=== PATIENT | male | born 1965 | race Caucasian/White ===

== ENCOUNTER 2017-09-14 15:11 | Inpatient (IN) | payer BC ==
[2017-09-14 15:52] LABS: CLARITY,URINE TURBID; COLOR,URINE RED; GLUCOSE,URINE NEGATIVE (NEG); NITRITE,URINE POSITIVE (NEG); PROTEIN,URINE >=300 mg/dL (NEG-TRACE)
[2017-09-14 15:57] LABS: ADD MAN DIFF? NO
[2017-09-14 16:00] LABS: BACTERIA,URINE MANY /HPF (0-FEW); BASO % 0 % (0-3); EOS # 0.1 x10^3/uL (0.0-0.7); EOS % 1 % (0-3); HEMATOCRIT 32.3 % (39.0-53.0); HEMOGLOBIN 10.8 g/dL (13.0-17.5); LYMPH # 2.4 x10^3/uL (1.0-4.8); LYMPH % 17 % (24-48); MEAN CORPUSCULAR HEMOGLOBIN 27 pg (25-35); MEAN CORPUSCULAR HGB CONC 33 g/dL (31-37); MEAN CORPUSCULAR VOLUME 80 fL (79-100); MONO # 1.3 x10^3/uL (0.0-1.1); MONO % 10 % (0-9); NEUT # 10.2 x10^3uL (1.8-7.7); NEUT % 72 % (31-73); PLATELET COUNT 569 x10^3/uL (140-400); RBC,URINE >40 /HPF (0-2); RED BLOOD COUNT 4.04 x10^6/uL (4.30-5.70); RED CELL DISTRIBUTION WIDTH 17.3 % (11.5-14.5); WBC,URINE TNTC /HPF (0-4); WHITE BLOOD COUNT 14.1 x10^3/uL (4.0-11.0)
[2017-09-14] MEDS: IV NORMAL SALINE 1000ML BAG 1,000 ML IV (16:06)
[2017-09-14 16:07] LABS: BARBITURATES NEG (NEG); BENZODIAZEPINES NEG (NEG); CANNABINOIDS NEG (NEG); COCAINE NEG (NEG); METHADONE NEG (NEG); OPIATES NEG (NEG); PHENCYCLIDINE NEG (NEG)
[2017-09-14 16:09] LABS: AMPHETAMINE/METHAMPHETAMINE NEG (NEG); ETHANOL, URINE NEG (NEG); INR 1.2 (0.8-1.1); PROTHROMBIN TIME PATIENT 14.1 SEC (11.7-14.0)
[2017-09-14] MEDS: MORPHINE SULFATE 4 MG/ML DISP.SYRIN. IV/SQ (16:12)
[2017-09-14] MEDS: ONDANSETRON ODT 4 MG TAB.RAPDIS. PO (16:12)
[2017-09-14] MEDS: IOHEXOL 300 MG/ML 100ML VIAL. IV (16:15)
[2017-09-14 16:19] LABS: LACTIC ACID 1.3 mmol/L (0.4-2.0)
[2017-09-14 16:23] LABS: TROPONINI < 0.017 ng/mL (0.000-0.055)
[2017-09-14 16:25] LABS: ANION GAP 11 (6-14); BLOOD UREA NITROGEN 18 mg/dL (8-26); CALCIUM 8.3 mg/dL (8.5-10.1); CARBON DIOXIDE 26 mmol/L (21-32); CHLORIDE 102 mmol/L (98-107); CREATININE 0.9 mg/dL (0.7-1.3); GLUCOSE 136 mg/dL (70-99); POTASSIUM 3.2 mmol/L (3.5-5.1); SODIUM 139 mmol/L (136-145)
[2017-09-14 16:28] LABS: NT-PRO BNP 197 pg/mL (0-124); THYROID STIM HORMONE (TSH) 3.324 uIU/mL (0.358-3.74)
[2017-09-14 16:29] LABS: ALBUMIN 2.3 g/dL (3.4-5.0); ALK PHOS 76 U/L (46-116); ALT (SGPT) 16 U/L (16-63); AST (SGOT) 12 U/L (15-37); DIRECT BILIRUBIN 0.1 mg/dL (0.0-0.2); LIPASE 96 U/L (73-393); MAGNESIUM 1.9 mg/dL (1.8-2.4); TOTAL BILIRUBIN 0.3 mg/dL (0.2-1.0); TOTAL PROTEIN 6.9 g/dL (6.4-8.2)
[2017-09-14] MEDS ORDERED: CONTRAST GIVEN MC (16:30)
[2017-09-14 16:52] LABS: CKMB MASS < 0.5 ng/mL (0.0-3.6)
[2017-09-14 16:53] LABS: CREATINE KINASE 45 U/L (39-308)
[2017-09-14] MEDS ORDERED: hydrALAZINE 20 MG/ML VIAL. IVP (18:45)
[2017-09-14] MEDS ORDERED: ONDANSETRON PF 4 MG/2 ML VIAL. IV ×2 (18:45→19:30)
[2017-09-14] MEDS: cefTRIAXone IV Push 1 GM VIAL. IVP (19:11)
[2017-09-14] MEDS: POTASSIUM CHLORIDE 20 MEQ TABLET.ER. PO (19:12)
[2017-09-14] MEDS: HYDROcodone/APAP 5/325MG 1 TAB TABLET PO (21:14)
[2017-09-14] MEDS: MORPHINE SULFATE 4 MG/ML DISP.SYRIN. IV (21:15)
[2017-09-14] MEDS: HEPARIN PF for SUB-Q USE 5,000 UNIT/0.5 ML VIAL. SQ (22:00)
[2017-09-15] MEDS: ACETAMINOPHEN 325 MG TABLET. PO ×2 (00:31→22:52)
[2017-09-15 05:36] LABS: ADD MAN DIFF? NO
[2017-09-15 05:38] LABS: BASO # 0.1 x10^3/uL (0.0-0.2); BASO % 1 % (0-3); EOS # 0.1 x10^3/uL (0.0-0.7); EOS % 1 % (0-3); HEMATOCRIT 31.3 % (39.0-53.0); HEMOGLOBIN 10.2 g/dL (13.0-17.5); LYMPH # 2.3 x10^3/uL (1.0-4.8); LYMPH % 18 % (24-48); MEAN CORPUSCULAR HEMOGLOBIN 26 pg (25-35); MEAN CORPUSCULAR HGB CONC 33 g/dL (31-37); MEAN CORPUSCULAR VOLUME 80 fL (79-100); MONO # 1.7 x10^3/uL (0.0-1.1); MONO % 13 % (0-9); NEUT % 68 % (31-73); PLATELET COUNT 468 x10^3/uL (140-400); RED BLOOD COUNT 3.89 x10^6/uL (4.30-5.70); WHITE BLOOD COUNT 13.1 x10^3/uL (4.0-11.0)
[2017-09-15] MEDS: HEPARIN PF for SUB-Q USE 5,000 UNIT/0.5 ML VIAL. SQ ×3 (06:00→21:45)
[2017-09-15 06:13] LABS: ANION GAP 7 (6-14); BLOOD UREA NITROGEN 12 mg/dL (8-26); CALCIUM 8.7 mg/dL (8.5-10.1); CARBON DIOXIDE 25 mmol/L (21-32); CHLORIDE 104 mmol/L (98-107); CREATININE 0.6 mg/dL (0.7-1.3); GLUCOSE 91 mg/dL (70-99); POTASSIUM 4.2 mmol/L (3.5-5.1); SODIUM 136 mmol/L (136-145)
[2017-09-15] MEDS: HYDROcodone/APAP 5/325MG 1 TAB TABLET PO ×2 (06:21→12:49)
[2017-09-15] MEDS: MORPHINE SULFATE 4 MG/ML DISP.SYRIN. IV ×4 (06:22→21:44)
[2017-09-15] MEDS ORDERED: CONTRAST GIVEN MC (08:45)
[2017-09-15] MEDS: IOHEXOL 300 MG/ML 100ML VIAL. IV (10:48)
[2017-09-15] MEDS: POLYETHYLENE GLYCOL 3350 238 GM POWDER PO (16:42)
[2017-09-15] MEDS: cefTRIAXone IV Push 1 GM VIAL. IVP (16:43)
[2017-09-15 17:16] LABS: C DIFF BY PCR Negative (Negative)
[2017-09-15] MEDS: TAMSULOSIN 0.4 MG CAP.ER.24H. PO ×2 (21:00→21:37)
[2017-09-16] MEDS: MORPHINE SULFATE 4 MG/ML DISP.SYRIN. IV ×7 (00:41→22:59)
[2017-09-16] MEDS: HYDROcodone/APAP 5/325MG 1 TAB TABLET PO (01:57)
[2017-09-16 05:25] LABS: LACTATE DEHYDROGENASE 231 U/L (85-227)
[2017-09-16] MEDS: HEPARIN PF for SUB-Q USE 5,000 UNIT/0.5 ML VIAL. SQ ×3 (06:00→21:24)
[2017-09-16] MEDS ORDERED: LIDOCAINE 1% PF 2 ML VIAL. ID ×2 (07:00→07:30)
[2017-09-16] MEDS ORDERED: ONDANSETRON PF 4 MG/2 ML VIAL. IV (07:00)
[2017-09-16] MEDS ORDERED: fentaNYL PF VIAL 100 MCG/2 ML VIAL IV ×4 (07:00→19:30)
[2017-09-16] MEDS ORDERED: MORPHINE SULFATE 4 MG/ML DISP.SYRIN. IV (07:00)
[2017-09-16] MEDS ORDERED: PROCHLORPERAZINE 10 MG/2 ML VIAL. IV (07:00)
[2017-09-16] MEDS: IV RINGERS,LACTATED 1000ML 1,000 ML IV ×4 (07:26→15:26)
[2017-09-16] MEDS ORDERED: MIDAZOLAM HCL/PF 2 MG/2 ML VIAL. IV (07:30)
[2017-09-16] MEDS ORDERED: SODIUM PHOSPHATES 19/7GM 133 ML ENEMA. (10:41)
[2017-09-16] MEDS ORDERED: PROPOFOL 20 ML IV ×3 (11:26→16:31)
[2017-09-16] MEDS: SODIUM PHOSPHATES 19/7GM 133 ML ENEMA. PR (11:30)
[2017-09-16] MEDS: cefTRIAXone IV Push 1 GM VIAL. IVP (16:00)
[2017-09-16] MEDS: IOHEXOL 300 MG/ML 100ML VIAL. (16:04)
[2017-09-16] MEDS ORDERED: ESMOLOL 100 MG/10 ML VIAL. IV (16:31)
[2017-09-16] MEDS ORDERED: ONDANSETRON PF 4 MG/2 ML VIAL. (16:31)
[2017-09-16] MEDS ORDERED: DEXAMETHASONE SOD PHOS 20 MG/5 ML VIAL. (16:31)
[2017-09-16] MEDS ORDERED: SEVOFLURANE 31 TO 60 MINUTES. IH (16:32)
[2017-09-16] MEDS: fentaNYL PF VIAL 100 MCG/2 ML VIAL IV ×5 (16:53→20:37)
[2017-09-16] MEDS ORDERED: LABETALOL 20 MG/4 ML DISP.SYRIN. (17:25)
[2017-09-16] MEDS: METOPROLOL TARTRATE 5 MG/5 ML VIAL. IVP (17:28)
[2017-09-16] MEDS ORDERED: diphenhydrAMINE HCL 25 MG CAPSULE PO (19:15)
[2017-09-16] MEDS: TAMSULOSIN 0.4 MG CAP.ER.24H. PO ×2 (20:35→21:00)
[2017-09-17] MEDS: fentaNYL PF VIAL 100 MCG/2 ML VIAL IV ×6 (02:18→16:51)
[2017-09-17] MEDS: IV RINGERS,LACTATED 1000ML 1,000 ML IV ×5 (02:19→23:05)
[2017-09-17] MEDS: HEPARIN PF for SUB-Q USE 5,000 UNIT/0.5 ML VIAL. SQ ×2 (06:00→14:00)
[2017-09-17] MEDS: MORPHINE SULFATE 4 MG/ML DISP.SYRIN. IV (06:31)
[2017-09-17] MEDS ORDERED: LIDOCAINE 1% PF 2 ML VIAL. ID (07:00)
[2017-09-17] MEDS ORDERED: ONDANSETRON PF 4 MG/2 ML VIAL. IV ×2 (07:00→15:30)
[2017-09-17] MEDS ORDERED: MORPHINE SULFATE 2 MG/ML DISP.SYRIN. IV (07:00)
[2017-09-17] MEDS ORDERED: fentaNYL PF VIAL 100 MCG/2 ML VIAL IV (07:00)
[2017-09-17] MEDS ORDERED: ROCURONIUM 50 MG/5 ML VIAL. ×2 (09:08→09:44)
[2017-09-17] MEDS ORDERED: PROPOFOL 20 ML IV (09:08)
[2017-09-17] MEDS ORDERED: LIDOCAINE 1% PF 5 ML VIAL. (09:08)
[2017-09-17] MEDS ORDERED: DEXAMETHASONE SOD PHOS 20 MG/5 ML VIAL. (09:09)
[2017-09-17] MEDS ORDERED: ONDANSETRON PF 4 MG/2 ML VIAL. (09:09)
[2017-09-17] MEDS ORDERED: fentaNYL PF VIAL 250 MCG/5 ML VIAL (09:12)
[2017-09-17] MEDS ORDERED: fentaNYL PF VIAL 100 MCG/2 ML VIAL (09:41)
[2017-09-17] MEDS ORDERED: KETAMINE HCL 500 MG/10 ML VIAL. (09:44)
[2017-09-17] MEDS ORDERED: [UNRECOGNIZED DRUG - OTHER] IV (11:00)
[2017-09-17] MEDS ORDERED: CEFOXITIN 2 GM IV (11:00)
[2017-09-17] MEDS ORDERED: MIDAZOLAM HCL/PF 2 MG/2 ML VIAL. (11:13)
[2017-09-17 11:24] LABS: CEA 2.2 ng/mL (0.0-4.7)
[2017-09-17 11:24] LABS: CEA 2.3 ng/mL (0.0-4.7)
[2017-09-17] MEDS ORDERED: ALBUMIN HUMAN 5% 500 ML IV (12:03)
[2017-09-17] MEDS ORDERED: ROCURONIUM 100 MG/10 ML VIAL. (12:10)
[2017-09-17] MEDS ORDERED: SEVOFLURANE > 120 MINUTES. IH (13:03)
[2017-09-17] MEDS ORDERED: MORPHINE SULFATE 10 MG/ML VIAL. (13:31)
[2017-09-17] MEDS ORDERED: NEOSTIGMINE 10 MG/10 ML VIAL. (14:54)
[2017-09-17] MEDS ORDERED: GLYCOPYRROLATE 1 MG/5 ML VIAL. (14:54)
[2017-09-17] MEDS ORDERED: NALOXONE 0.4 MG/ML VIAL. IV (15:30)
[2017-09-17] MEDS ORDERED: 0.9 % SODIUM CHLORIDE 10 ML DISP.SYRIN. IV (15:30)
[2017-09-17] MEDS: MORPHINE SULFATE/PF 30 ML IV (16:11)
[2017-09-17] MEDS: PROCHLORPERAZINE 10 MG/2 ML VIAL. IV ×2 (16:15→16:50)
[2017-09-17] MEDS ORDERED: ENOXAPARIN 40 MG/0.4 ML SYRINGE. SQ (17:00)
[2017-09-17] MEDS: IV NORMAL SALINE 1000ML BAG 1,000 ML IV (18:19)
[2017-09-17] MEDS: cefTRIAXone IV Push 1 GM VIAL. IVP (19:28)
[2017-09-17] MEDS: TAMSULOSIN 0.4 MG CAP.ER.24H. PO (20:41)
[2017-09-18 05:54] LABS: ADD MAN DIFF? NO
[2017-09-18 06:23] LABS: ANION GAP 7 (6-14); BLOOD UREA NITROGEN 10 mg/dL (8-26); CARBON DIOXIDE 26 mmol/L (21-32); CHLORIDE 104 mmol/L (98-107); CREATININE 0.5 mg/dL (0.7-1.3); GFR 175.3; GLUCOSE 129 mg/dL (70-99); POTASSIUM 4.2 mmol/L (3.5-5.1); SODIUM 137 mmol/L (136-145)
[2017-09-18 06:33] LABS: BASO % 0 % (0-3); EOS % 0 % (0-3); HEMOGLOBIN 7.9 g/dL (13.0-17.5); LYMPH # 1.6 x10^3/uL (1.0-4.8); LYMPH % 12 % (24-48); MEAN CORPUSCULAR HEMOGLOBIN 26 pg (25-35); MEAN CORPUSCULAR HGB CONC 33 g/dL (31-37); MEAN CORPUSCULAR VOLUME 79 fL (79-100); MONO # 1.1 x10^3/uL (0.0-1.1); MONO % 8 % (0-9); NEUT # 10.4 x10^3uL (1.8-7.7); NEUT % 79 % (31-73); PLATELET COUNT 411 x10^3/uL (140-400); RED BLOOD COUNT 3.03 x10^6/uL (4.30-5.70); RED CELL DISTRIBUTION WIDTH 16.5 % (11.5-14.5); WHITE BLOOD COUNT 13.2 x10^3/uL (4.0-11.0)
[2017-09-18] MEDS: MORPHINE SULFATE/PF 30 ML IV ×3 (08:19→21:28)
[2017-09-18] MEDS: ENOXAPARIN 40 MG/0.4 ML SYRINGE. SQ (10:51)
[2017-09-18] MEDS: IV NORMAL SALINE 1000ML BAG 1,000 ML IV (15:29)
[2017-09-18 15:31] LABS: MRSA BY PCR Negative (Negative)
[2017-09-18] MEDS: cefTRIAXone IV Push 1 GM VIAL. IVP (16:48)
[2017-09-18] MEDS: TAMSULOSIN 0.4 MG CAP.ER.24H. PO (20:10)
[2017-09-19] MEDS: MORPHINE SULFATE/PF 30 ML IV ×4 (04:15→21:57)
[2017-09-19] MEDS: ENOXAPARIN 40 MG/0.4 ML SYRINGE. SQ (08:04)
[2017-09-19] MEDS: IV NORMAL SALINE 1000ML BAG 1,000 ML IV ×2 (13:07→15:25)
[2017-09-19] MEDS: cefTRIAXone IV Push 1 GM VIAL. IVP (15:24)
[2017-09-19] MEDS: diphenhydrAMINE 50 MG/ML VIAL IVP (16:12)
[2017-09-19] MEDS: TAMSULOSIN 0.4 MG CAP.ER.24H. PO (21:00)
[2017-09-20] MEDS: MORPHINE SULFATE/PF 30 ML IV (04:11)
[2017-09-20] MEDS ORDERED: NALOXONE 0.4 MG/ML VIAL. IV (04:30)
[2017-09-20 06:21] LABS: ADD MAN DIFF? NO; BASO # 0.1 x10^3/uL (0.0-0.2); BASO % 1 % (0-3); EOS # 0.1 x10^3/uL (0.0-0.7); EOS % 1 % (0-3); HEMATOCRIT 23.2 % (39.0-53.0); HEMOGLOBIN 7.6 g/dL (13.0-17.5); LYMPH # 2.2 x10^3/uL (1.0-4.8); LYMPH % 18 % (24-48); MEAN CORPUSCULAR HEMOGLOBIN 26 pg (25-35); MEAN CORPUSCULAR HGB CONC 33 g/dL (31-37); MEAN CORPUSCULAR VOLUME 80 fL (79-100); MONO # 1.1 x10^3/uL (0.0-1.1); MONO % 9 % (0-9); NEUT % 72 % (31-73); PLATELET COUNT 435 x10^3/uL (140-400); RED BLOOD COUNT 2.89 x10^6/uL (4.30-5.70); WHITE BLOOD COUNT 12.5 x10^3/uL (4.0-11.0)
[2017-09-20 06:41] LABS: ANION GAP 11 (6-14); BLOOD UREA NITROGEN 14 mg/dL (8-26); CALCIUM 7.9 mg/dL (8.5-10.1); CARBON DIOXIDE 24 mmol/L (21-32); CHLORIDE 103 mmol/L (98-107); CREATININE 0.7 mg/dL (0.7-1.3); GFR 118.9; GLUCOSE 57 mg/dL (70-99); POTASSIUM 3.5 mmol/L (3.5-5.1); SODIUM 138 mmol/L (136-145)
[2017-09-20] MEDS: IV NORMAL SALINE 1000ML BAG 1,000 ML IV (07:00)
[2017-09-20] MEDS: ENOXAPARIN 40 MG/0.4 ML SYRINGE. SQ (11:18)
[2017-09-20] MEDS: cefTRIAXone IV Push 1 GM VIAL. IVP (16:00)
[2017-09-20] MEDS: AMINO AC 3%/ELECTROLYTE/GLYCER 1,000 ML IV (16:47)
[2017-09-20] MEDS: diphenhydrAMINE 50 MG/ML VIAL IVP (18:29)
[2017-09-20] MEDS: TAMSULOSIN 0.4 MG CAP.ER.24H. PO (20:03)
[2017-09-21] MEDS: AMINO AC 3%/ELECTROLYTE/GLYCER 1,000 ML IV ×2 (02:15→15:58)
[2017-09-21 04:48] LABS: ADD MAN DIFF? NO
[2017-09-21 05:12] LABS: BASO % 0 % (0-3); EOS # 0.3 x10^3/uL (0.0-0.7); EOS % 2 % (0-3); LYMPH # 2.3 x10^3/uL (1.0-4.8); LYMPH % 21 % (24-48); MEAN CORPUSCULAR HEMOGLOBIN 27 pg (25-35); MEAN CORPUSCULAR HGB CONC 34 g/dL (31-37); MEAN CORPUSCULAR VOLUME 80 fL (79-100); MONO % 10 % (0-9); NEUT # 7.2 x10^3uL (1.8-7.7); NEUT % 67 % (31-73); PLATELET COUNT 498 x10^3/uL (140-400); RED BLOOD COUNT 2.99 x10^6/uL (4.30-5.70); RED CELL DISTRIBUTION WIDTH 17.2 % (11.5-14.5); WHITE BLOOD COUNT 10.8 x10^3/uL (4.0-11.0)
[2017-09-21 05:40] LABS: ANION GAP 8 (6-14); BLOOD UREA NITROGEN 13 mg/dL (8-26); CALCIUM 8.4 mg/dL (8.5-10.1); CARBON DIOXIDE 28 mmol/L (21-32); CHLORIDE 102 mmol/L (98-107); CREATININE 0.6 mg/dL (0.7-1.3); GLUCOSE 104 mg/dL (70-99); POTASSIUM 3.5 mmol/L (3.5-5.1); SODIUM 138 mmol/L (136-145)
[2017-09-21] MEDS: ENOXAPARIN 40 MG/0.4 ML SYRINGE. SQ (08:55)
[2017-09-21] MEDS: oxyCODONE/APAP 7.5/325 1 TAB TABLET PO ×2 (09:35→15:58)
[2017-09-21] MEDS: MORPHINE SULFATE 4 MG/ML DISP.SYRIN. IV ×3 (09:35→15:59)
[2017-09-21] MEDS: DIATRIZOATE MEGLUMINE 18% 300 ML SOLUTION. PO (12:45)
[2017-09-21] MEDS: cefTRIAXone IV Push 1 GM VIAL. IVP (16:03)
[2017-09-21] MEDS: MORPHINE SULFATE 10 MG/ML VIAL. IV (17:28)
[2017-09-21] MEDS ORDERED: NALOXONE 0.4 MG/ML VIAL. IV (17:30)
[2017-09-21] MEDS ORDERED: HYOSCYAMINE 0.125 MG TAB.RAPDIS PO (18:00)
[2017-09-21] MEDS: TAMSULOSIN 0.4 MG CAP.ER.24H. PO (21:11)
[2017-09-22] MEDS: oxyCODONE/APAP 7.5/325 1 TAB TABLET PO ×5 (05:07→21:38)
[2017-09-22] MEDS: MORPHINE SULFATE 4 MG/ML DISP.SYRIN. IV ×8 (05:15→23:10)
[2017-09-22] MEDS: ENOXAPARIN 40 MG/0.4 ML SYRINGE. SQ (08:45)
[2017-09-22] MEDS: ALPRAZolam 0.5 MG TABLET PO ×2 (13:18→19:47)
[2017-09-22] MEDS: AMINO AC 3%/ELECTROLYTE/GLYCER 1,000 ML IV (13:20)
[2017-09-22] MEDS: cefTRIAXone IV Push 1 GM VIAL. IVP (16:44)
[2017-09-23] MEDS: oxyCODONE/APAP 7.5/325 1 TAB TABLET PO ×4 (02:54→19:13)
[2017-09-23] MEDS: MORPHINE SULFATE 4 MG/ML DISP.SYRIN. IV ×7 (02:56→21:04)
[2017-09-23] MEDS: AMINO AC 3%/ELECTROLYTE/GLYCER 1,000 ML IV (04:05)
[2017-09-23] MEDS: ENOXAPARIN 40 MG/0.4 ML SYRINGE. SQ (08:43)
[2017-09-23] MEDS: ALBUTEROL SULFATE 2.5 MG/3 ML NEBU. NEB (09:33)
[2017-09-23] MEDS: ALPRAZolam 0.5 MG TABLET PO (12:29)
[2017-09-23] MEDS: cefTRIAXone IV Push 1 GM VIAL. IVP (16:00)
[2017-09-23] MEDS: ALPRAZolam 1 MG TABLET PO (21:04)
[2017-09-23] MEDS: oxyCODONE/APAP 10/325 1 TAB TABLET PO (23:16)
[2017-09-24] MEDS: MORPHINE SULFATE 4 MG/ML DISP.SYRIN. IV ×7 (01:15→23:23)
[2017-09-24] MEDS: ALPRAZolam 0.5 MG TABLET PO ×3 (02:58→21:07)
[2017-09-24] MEDS: oxyCODONE/APAP 10/325 1 TAB TABLET PO ×5 (02:58→21:07)
[2017-09-24 04:13] LABS: ADD MAN DIFF? NO
[2017-09-24 04:23] LABS: BASO % 0 % (0-3); EOS # 0.3 x10^3/uL (0.0-0.7); EOS % 3 % (0-3); HEMATOCRIT 22.7 % (39.0-53.0); HEMOGLOBIN 7.5 g/dL (13.0-17.5); LYMPH # 1.6 x10^3/uL (1.0-4.8); LYMPH % 17 % (24-48); MEAN CORPUSCULAR HEMOGLOBIN 26 pg (25-35); MEAN CORPUSCULAR HGB CONC 33 g/dL (31-37); MEAN CORPUSCULAR VOLUME 80 fL (79-100); MONO # 0.9 x10^3/uL (0.0-1.1); MONO % 10 % (0-9); NEUT # 6.7 x10^3uL (1.8-7.7); NEUT % 71 % (31-73); PLATELET COUNT 476 x10^3/uL (140-400); RED BLOOD COUNT 2.83 x10^6/uL (4.30-5.70); RED CELL DISTRIBUTION WIDTH 17.9 % (11.5-14.5); WHITE BLOOD COUNT 9.6 x10^3/uL (4.0-11.0)
[2017-09-24 04:36] LABS: ANION GAP 5 (6-14); BLOOD UREA NITROGEN 11 mg/dL (8-26); CALCIUM 8.4 mg/dL (8.5-10.1); CARBON DIOXIDE 27 mmol/L (21-32); CHLORIDE 103 mmol/L (98-107); CREATININE 0.7 mg/dL (0.7-1.3); GFR 118.9; GLUCOSE 110 mg/dL (70-99); POTASSIUM 3.9 mmol/L (3.5-5.1); SODIUM 135 mmol/L (136-145)
[2017-09-24] MEDS: ENOXAPARIN 40 MG/0.4 ML SYRINGE. SQ (08:20)
[2017-09-24] MEDS: traMADol 50 MG TABLET PO (16:02)
[2017-09-24] MEDS: cefTRIAXone IV Push 1 GM VIAL. IVP (16:02)
[2017-09-24] MEDS: ALPRAZolam 1 MG TABLET PO ×2 (16:03→23:23)
[2017-09-24] MEDS: SERTRALINE 25 MG TABLET. PO (18:30)
[2017-09-25] MEDS: oxyCODONE/APAP 10/325 1 TAB TABLET PO ×3 (04:01→12:30)
[2017-09-25] MEDS: MORPHINE SULFATE 4 MG/ML DISP.SYRIN. IV (06:04)
[2017-09-25] MEDS: ALPRAZolam 1 MG TABLET PO ×2 (06:04→12:30)
[2017-09-25] MEDS: traMADol 50 MG TABLET PO ×2 (08:34→14:15)
[2017-09-25] MEDS: ENOXAPARIN 40 MG/0.4 ML SYRINGE. SQ (08:35)
[2017-09-25] MEDS: SERTRALINE 25 MG TABLET. PO (08:35)
[2017-09-25] MEDS: DOCUSATE SODIUM 100 MG CAPSULE. PO (12:30)
[2017-09-25] MEDS: cefTRIAXone IV Push 1 GM VIAL. IVP (16:00)
== END 2017-09-25 15:00 | disposition home health service (06) | DRG 330 ==
LOC: 4 NORTH 09-19 12:52 → ER 15:11 → 1 WEST ICU 09-17 15:34 → 4 NORTH 17:45 → 1 WEST ICU 09-17 15:55
PROC: 0DJD8ZZ Inspection of Lower Intestinal Tract, Via Natural or Artificial Opening Endoscopic (ICD-10-PCS; 2017-09-16 11:00)
PROC: 0DJ08ZZ Inspection of Upper Intestinal Tract, Via Natural or Artificial Opening Endoscopic (ICD-10-PCS; 2017-09-16 11:00)
PROC: BT141ZZ Fluoroscopy of Kidneys, Ureters and Bladder using Low Osmolar Contrast (ICD-10-PCS; 2017-09-16 11:00)
PROC: 0D1N0Z4 Bypass Sigmoid Colon to Cutaneous, Open Approach (ICD-10-PCS; principal; 2017-09-16 11:33)
PROC: 0DTN0ZZ Resection of Sigmoid Colon, Open Approach (ICD-10-PCS; 2017-09-16 11:33)
PROC: 0T788DZ Dilation of Bilateral Ureters with Intraluminal Device, Via Natural or Artificial Opening Endoscopic (ICD-10-PCS; 2017-09-16 11:33)
DX: C18.7 Malignant neoplasm of sigmoid colon (principal); K56.609 Unspecified intestinal obstruction, unspecified as to partial versus complete obstruction; E44.1 Mild protein-calorie malnutrition; N13.30 Unspecified hydronephrosis; N39.0 Urinary tract infection, site not specified; K56.699 Other intestinal obstruction unspecified as to partial versus complete obstruction; R19.00 Intra-abdominal and pelvic swelling, mass and lump, unspecified site; D64.9 Anemia, unspecified; E87.6 Hypokalemia; F10.10 Alcohol abuse, uncomplicated; F17.210 Nicotine dependence, cigarettes, uncomplicated; F32.9 Major depressive disorder, single episode, unspecified; F41.9 Anxiety disorder, unspecified; N32.9 Bladder disorder, unspecified; R31.0 Gross hematuria; Z82.49 Family history of ischemic heart disease and other diseases of the circulatory system; Z68.21 Body mass index [BMI] 21.0-21.9, adult
CPT/HCPCS: 36415; 71260; 74018; 74177; 74430; 76000; 76770; 80048; 80076; 80307; 81001; 82378; 82553; 83605; 83615; 83690; 83735; 83880; 84443; 84484; 85025; 85610; 86850; 86900; 86901; 87040; 87086; 87324; 87641; 88304; 88305; 88309; 93005; 94640; 94760; 96361; 96374; 96375; 97116-GP; 97162-GP; 97165-GO; 99285; 99285-25; C1713; C1769; C2617; J0694; J0696; J0780; J1100; J1170; J1200; J1650; J2060; J2250; J2270; J2405; J2704; J2710; J3010; J3490; J7030; J7120; J7613; P9045; Q0162; Q9967

== ENCOUNTER 2017-09-28 09:54 | Emergency (ER) | payer BC ==
[2017-09-28] MEDS ORDERED: IV NORMAL SALINE 1000ML BAG 1,000 ML IV (10:30)
== END 2017-09-28 10:56 | disposition home or self-care (01) ==
LOC: ER 09:54
DX: T83.098A Other mechanical complication of other urinary catheter, initial encounter (principal); Z93.3 Colostomy status; Y84.6 Urinary catheterization as the cause of abnormal reaction of the patient, or of later complication, without mention of misadventure at the time of the procedure; Y92.89 Other specified places as the place of occurrence of the external cause
CPT/HCPCS: 99284

== ENCOUNTER 2017-09-29 10:21 | Emergency (ER) | payer BC ==
[2017-09-29] MEDS: HYDROcodone/APAP 5/325MG 1 TAB TABLET PO (11:54)
[2017-09-29] MEDS: LIDOCAINE 2% JELLY 6ML IN APPLICATOR. MM (11:54)
[2017-09-29 12:16] LABS: BILIRUBIN,URINE NEGATIVE (NEG); CLARITY,URINE CLOUDY; COLOR,URINE AMBER; GLUCOSE,URINE NEGATIVE (NEG); NITRITE,URINE NEGATIVE (NEG); PH,URINE 6.5; PROTEIN,URINE >=300 mg/dL (NEG-TRACE); UROBILINOGEN,URINE 0.2 mg/dL (0.2 mg/dL)
[2017-09-29 12:28] LABS: BACTERIA,URINE 0 /HPF (0-FEW); RBC,URINE 20-40 /HPF (0-2); WBC,URINE >40 /HPF (0-4)
== END 2017-09-29 13:12 | disposition home or self-care (01) ==
LOC: ER 10:21
DX: Z46.6 Encounter for fitting and adjustment of urinary device (principal); F17.200 Nicotine dependence, unspecified, uncomplicated; Z90.49 Acquired absence of other specified parts of digestive tract
CPT/HCPCS: 51702; 81001; 87086; 99284

== ENCOUNTER → 2017-10-01 | Outpatient (CLI) | payer BC ==
[~2017-10-01] MED LIST: DIATRIZOATE MEGLUMINE 18% 300 ML SOLUTION. PO
== END | disposition home or self-care (01) ==
LOC: RAD 07:48
DX: S37.20XD Unspecified injury of bladder, subsequent encounter (principal); X58.XXXD Exposure to other specified factors, subsequent encounter
CPT/HCPCS: 74430

== ENCOUNTER 2017-10-03 04:03 | Emergency (ER) | payer BC ==
[2017-10-03] MEDS: IV NORMAL SALINE 1000ML BAG 1,000 ML IV (05:32)
[2017-10-03 05:34] LABS: ADD MAN DIFF? NO
[2017-10-03 05:47] LABS: ANION GAP 8 (6-14); BLOOD UREA NITROGEN 11 mg/dL (8-26); CALCIUM 8.6 mg/dL (8.5-10.1); CARBON DIOXIDE 27 mmol/L (21-32); CHLORIDE 106 mmol/L (98-107); CREATININE 0.7 mg/dL (0.7-1.3); GFR 118.9; GLUCOSE 119 mg/dL (70-99); POTASSIUM 4.2 mmol/L (3.5-5.1); SODIUM 141 mmol/L (136-145)
[2017-10-03 05:48] LABS: BASO % 1 % (0-3); EOS # 0.3 x10^3/uL (0.0-0.7); EOS % 4 % (0-3); HEMATOCRIT 21.9 % (39.0-53.0); HEMOGLOBIN 7.2 g/dL (13.0-17.5); LYMPH # 1.7 x10^3/uL (1.0-4.8); LYMPH % 22 % (24-48); MEAN CORPUSCULAR HEMOGLOBIN 26 pg (25-35); MEAN CORPUSCULAR HGB CONC 33 g/dL (31-37); MEAN CORPUSCULAR VOLUME 80 fL (79-100); MONO # 0.6 x10^3/uL (0.0-1.1); MONO % 8 % (0-9); NEUT # 4.9 x10^3uL (1.8-7.7); NEUT % 65 % (31-73); PLATELET COUNT 627 x10^3/uL (140-400); RED BLOOD COUNT 2.74 x10^6/uL (4.30-5.70); WHITE BLOOD COUNT 7.5 x10^3/uL (4.0-11.0)
[2017-10-03 05:55] LABS: TROPONINI < 0.017 ng/mL (0.000-0.055)
[2017-10-03 05:59] LABS: BILIRUBIN,URINE NEGATIVE (NEG); CLARITY,URINE CLOUDY; COLOR,URINE RED; GLUCOSE,URINE NEGATIVE (NEG); NITRITE,URINE NEGATIVE (NEG); PROTEIN,URINE >=300 mg/dL (NEG-TRACE); UROBILINOGEN,URINE 0.2 mg/dL (0.2 mg/dL)
[2017-10-03 06:17] LABS: BACTERIA,URINE FEW /HPF (0-FEW); RBC,URINE TNTC /HPF (0-2)
== END 2017-10-03 06:32 | disposition home or self-care (01) ==
LOC: ER 04:03
DX: C18.7 Malignant neoplasm of sigmoid colon (principal); F41.9 Anxiety disorder, unspecified; R00.0 Tachycardia, unspecified; F32.9 Major depressive disorder, single episode, unspecified; Z90.49 Acquired absence of other specified parts of digestive tract; Z93.3 Colostomy status
CPT/HCPCS: 36415; 80048; 81001; 84484; 85025; 87086; 96361; 96374; 99284-25; J2060; J7030